=== PATIENT | female | born 1980 | race Caucasian/White ===

== ENCOUNTER 2021-01-19 15:54 | Outpatient (CLI) | payer OTHER ==
[2021-01-19 16:55] LABS: Hemoglobin 12.9 g/dL (12.0-15.5); Mean Corpuscular HGB CONC 34.1 g/dL (32.0-36.0); Mean Corpuscular Hemoglobin 28.9 pg (27.0-33.0); Mean Corpuscular Volume 84.8 fl (81.6-98.3); Mean Platelet Volume 9.3 fl (7.4-10.4); Platelet Count 345 10x3/uL (150-450); RBC Distribution Width 13.8 % (11.5-14.5); Red Blood Cell (RBC) Count 4.46 10x6/uL (3.90-5.03)
[2021-01-19 17:12] LABS: Anion Gap 13 mmol/L (10-20); BUN (Urea Nitrogen) 13 mg/dL (7.0-18.7); Calc. Creatinine Clearance 0 mL/min (70-130); Calcium 8.9 mg/dL (7.8-10.44); Carbon Dioxide 24 mmol/L (22-29); Chloride 105 mmol/L (98-107); Glucose 70 mg/dL (70-105); Potassium 4.1 mmol/L (3.5-5.1); Sodium 138 mmol/L (136-145)
[2021-01-20 14:29] LABS: SARS-CoV-2 PCR by NAA Not Detected (NotDetected)
== END 2021-01-19 15:55 | disposition home or self-care (01) ==
LOC: CSHLAB 15:54
PROVIDERS: ATTEND Podiatrist Foot & Ankle Surgery
DX: Z01.812 Encounter for preprocedural laboratory examination (principal); Z20.822 Contact with and (suspected) exposure to COVID-19; M72.2 Plantar fascial fibromatosis; M77.32 Calcaneal spur, left foot
CPT/HCPCS: 80048; 85027; U0003; U0005

== ENCOUNTER → 2021-01-24 | Day surgery (SDC) | payer OTHER ==
[2021-01-22 14:35] VITALS: BMI 31.1
[~2021-01-24] MED LIST: Bupivacaine PF 0.5% 30 ML VIAL ONE; Lidocaine 1% MPF 2 ML VIAL ONE; Neomycin-Polymyxin 1 ML AMP ONE
== END ==
LOC: CSHSDC 09:31
PROVIDERS: ATTEND Podiatrist Foot & Ankle Surgery
DX: M72.2 Plantar fascial fibromatosis (principal); Z53.8 Procedure and treatment not carried out for other reasons
CPT/HCPCS: S0020

== ENCOUNTER 2021-01-25 06:14 | Day surgery (SDC) | payer OTHER ==
[2021-01-25] MEDS ORDERED: Bupivacaine PF 0.5% 30 ML VIAL ONE (06:42)
[2021-01-25] MEDS ORDERED: Neomycin-Polymyxin 1 ML AMP ONE (06:42)
[2021-01-25] MEDS ORDERED: Lidocaine 1% MPF 2 ML VIAL ONE (06:49)
[2021-01-25] MEDS ORDERED: Scopolamine 1.5 mg/72 hour Patch ONE (06:59)
[2021-01-25] MEDS ORDERED: Famotidine/PF 20 mg/2ml Vial ONE (07:00)
[2021-01-25] MEDS ORDERED: Midazolam HCl 2 mg/2 ml Vial ONE (07:00)
[2021-01-25] MEDS ORDERED: Fentanyl 100 MCG/2 ML VIAL ONE (07:03)
[2021-01-25] MEDS ORDERED: PROPOFOL 20 ML ONE (07:03)
[2021-01-25] MEDS ORDERED: Dexamethasone 20 MG/5 ML VIAL ONE (07:04)
[2021-01-25] MEDS ORDERED: Lidocaine 1% PF 5 ML VIAL ONE (07:04)
[2021-01-25] MEDS ORDERED: Ondansetron PF 4 MG/2 ML Vial ONE ×2 (07:04→07:49)
[2021-01-25] MEDS ORDERED: diphenhydrAMINE 50 MG/ML VIAL ONE (08:01)
== END 2021-01-25 09:45 | disposition home or self-care (01) ==
LOC: CSHSDC 06:14
PROVIDERS: ATTEND Podiatrist Foot & Ankle Surgery
PROC: 0JNR0ZZ Release Left Foot Subcutaneous Tissue and Fascia, Open Approach (ICD-10-PCS; principal; 2021-01-25)
DX: M72.2 Plantar fascial fibromatosis (principal); M77.32 Calcaneal spur, left foot; M06.9 Rheumatoid arthritis, unspecified; Z90.710 Acquired absence of both cervix and uterus; Z87.891 Personal history of nicotine dependence
CPT/HCPCS: 76000; J0690; J1100; J1200; J2250; J2405; J2704; J3010; J3490; S0020; S0028

== ENCOUNTER 2021-03-05 13:03 | Outpatient (CLI) | payer OTHER ==
[2021-03-05 14:30] LABS: Hemoglobin 13.1 g/dL (12.0-15.5); Mean Corpuscular HGB CONC 34.2 g/dL (32.0-36.0); Mean Corpuscular Hemoglobin 29.1 pg (27.0-33.0); Mean Corpuscular Volume 85.1 fl (81.6-98.3); Mean Platelet Volume 9.4 fl (7.4-10.4); Platelet Count 337 10x3/uL (150-450); RBC Distribution Width 12.9 % (11.5-14.5); White Blood Cell (WBC) Count 7.7 10x3/uL (3.5-10.5)
[2021-03-05 14:51] LABS: Anion Gap 11 mmol/L (10-20); BUN (Urea Nitrogen) 11 mg/dL (7.0-18.7); Calc. Creatinine Clearance 0 mL/min (70-130); Calcium 8.9 mg/dL (7.8-10.44); Carbon Dioxide 25 mmol/L (22-29); Chloride 103 mmol/L (98-107); Glucose 115 mg/dL (70-105); Potassium 4.1 mmol/L (3.5-5.1); Sodium 135 mmol/L (136-145)
[2021-03-05 22:28] LABS: SARS-CoV-2 PCR by NAA Not Detected (NotDetected)
== END 2021-03-05 13:04 | disposition home or self-care (01) ==
LOC: CSHLAB 13:03
PROVIDERS: ATTEND Podiatrist Foot & Ankle Surgery
DX: Z01.812 Encounter for preprocedural laboratory examination (principal); Z20.822 Contact with and (suspected) exposure to COVID-19
CPT/HCPCS: 80048; 85027; U0003; U0005

== ENCOUNTER 2021-03-07 10:32 | Day surgery (SDC) | payer OTHER ==
[2021-03-01 10:47] VITALS: BMI 31.1
[2021-03-07] MEDS ORDERED: Lidocaine 1% MPF 2 ML VIAL ONE (11:03)
[2021-03-07] MEDS ORDERED: Midazolam HCl 2 mg/2 ml Vial ONE (12:28)
[2021-03-07] MEDS ORDERED: Fentanyl 100 MCG/2 ML VIAL ONE (12:28)
[2021-03-07] MEDS ORDERED: PROPOFOL 20 ML ONE (12:28)
[2021-03-07] MEDS ORDERED: Dexamethasone 20 MG/5 ML VIAL ONE (12:29)
[2021-03-07] MEDS ORDERED: Ketorolac Tromethamine 30 MG/ML VIAL ONE (12:29)
[2021-03-07] MEDS ORDERED: Bupivacaine PF 0.5% 30 ML VIAL ONE (12:29)
[2021-03-07] MEDS ORDERED: Ondansetron PF 4 MG/2 ML Vial ONE (12:29)
== END 2021-03-07 14:45 | disposition home or self-care (01) ==
LOC: CSHSDC 10:32
PROVIDERS: ATTEND Podiatrist Foot & Ankle Surgery
DX: M72.2 Plantar fascial fibromatosis (principal); M77.31 Calcaneal spur, right foot; M06.9 Rheumatoid arthritis, unspecified; Z79.899 Other long term (current) drug therapy
CPT/HCPCS: 76000; J0690; J1100; J1885; J2250; J2405; J2704; J3010; S0020